=== PATIENT | male | born 1940 | race Caucasian/White ===

== ENCOUNTER 2016-07-27 01:16 | Inpatient (IN) | payer MEDICARE, MEDICAID ==
[~2016-07-27] VITALS: Ht 147.3 cm; Wt 36.7 kg
--- NOTE | ~2016-07-27 | CON ---
PATIENT'S NAME: EMMA MACIAS [facility] AGE: 75 Y [address] ROOM: [address] [address] LOCATION: [facility] ADMIT DATE: 07/27/2016 Consultation DISCHARGE DATE: 07/27/2016 FAMILY PHYSICIAN: Catalino Gamble ATTENDING PHYSICIAN: Carlos Cervantes V DATE OF CONSULTATION: 07/27/2016 LOCATION: [place] [address]. This is a palliative care referral for goals of care in patient and family support. HISTORY OF PRESENT ILLNESS: This 75-year-old male was admitted on 07/27/2016 with pneumoperitoneum. He was recently admitted in [place] for a gastrostomy tube placement by Interventional Radiology on 07/16/2016. He was in the hospital until the and was sent back to [facility] in [place], [place]. He had a pneumothorax after the gastrostomy tube was placed and had been receiving tube feedings. The patient started to have distended abdomen and was transferred to the hospital in [place]. He has a known history of cerebral spinal meningitis, PKU, seizures, spastic quadriplegia, severe mental retardation, chronic constipation, chronic UTIs, and severe malnutrition with weight loss. He has lived at the [facility] since he was age of [address] scan was performed and revealed that the gastrostomy tube was too extraluminal with a very thickened bowel cornejo, dilated loops of bowel, and was found gastrostomy tube outside of stomach and multiple bowel obtstructions. Patient is unresponsive and respirations are labored. No grimacing or moaning noted. PAST MEDICAL HISTORY: Mental retardation, cerebral spinal meningitis, phenylketonuria or PKU, seizure disorder, spastic quadriplegic, and micro encephalopathy. SOCIAL HISTORY: Patient has lived at the [facility] since he was the age of 8. He has 1 sister and 2 brothers. Brothers are not involved. Sister and her are the medical power of research attorney. He is wheelchair bound and nonverbal. FAMILY HISTORY: Non-obtainable. MEDICATIONS: See MAR. REVIEW OF SYSTEMS: A review of systems was done and chart was reviewed. The patient is PATIENT'S NAME: RMSEATTLE [facility] AGE: 75 Y [address] ROOM: [facility] [place], [place] [address] LOCATION: [facility] ADMIT DATE: 07/27/2016 Consultation DISCHARGE DATE: 07/27/2016 FAMILY PHYSICIAN: Catalino Gamble ATTENDING PHYSICIAN: Carlos Cervantes V unresponsive, unable to do due to condition. PHYSICAL EXAMINATION: VITAL SIGNS: Temp 96.8 axillary, heart rate 107, respirations 52, blood pressure 90/69, and O2 sat is 91%. He weighs 81 pounds. GENERAL: Unresponsive, labored respirations. SKIN: Warm and dry. Color pale, diaphoretic. Feet are cool, some cyanosis. HEENT: Head: Normocephalic and atraumatic. Sclerae are nonicteric. Conjunctivae are pale and pink. Mouth is pink and dry. LYMPHATICS: No cervical adenopathy or thyromegaly. RESPIRATORY: Clear to auscultation. Breath sounds, tachypnea and labored in the 50s. CARDIAC: S1, S2 without murmurs or bruits. No lower extremity edema. ABDOMEN: Soft, nondistended. Positive hypo bowel tones. NEUROLOGIC: Unresponsive. MUSCULOSKELETAL: Contracted in upper and lower extremities. He has been wheelchair-bound. EXTREMITIES: Cyanosis in lower extremities and in hands. IMPRESSION: Dyspnea. PLAN: I talked with sister Charisma Cheney who is the medical power of research attorney and patient's sister. Discussed her knowledge of condition and talking with Dr. Hughes and hospitalists. She has a good understanding of the patient's condition and does not want to have surgery. Discussed comfort cares and keeping the patient comfortable. She is in agreement to doing comfort cares and just keep the patient comfortable. She is unable to come and see patient due to just being within the past couple of days in [place] and she lives in [place]. Discussed options of having [employer] caregivers come and be with the patient and volunteers from [employer] program. Sister is in favor of doing both. Spiritual needs, is okay to contact Civil Engineering Draftsperson from [employer] to come up and see patient. Did contact registrar college or university. He is on his way. CODE STATUS AND ADVANCE DIRECTIVE: A copy of advance directive is on the chart. The patient is a do not resuscitate/do not intubate. FEARS AND CONCERNS: Discussed with sister her concerns and worries; does not want her brother to suffer; wants to keep him comfortable and not be alone if possible. RECOMMENDATIONS: Comfort care order set was initiated after talking with the hospitalist. PATIENT'S NAME: EMMA MACIAS [facility] AGE: 75 Y [address] ROOM: [address] [address] LOCATION: [facility] ADMIT DATE: 07/27/2016 Consultation DISCHARGE DATE: 07/27/2016 FAMILY PHYSICIAN: Catalino Gamble ATTENDING PHYSICIAN: Carlos Cervantes V home is [facility]. Total time was 60 minutes with 50 minutes for counseling and coordination of care. Thank you for allowing me to assist this patient and family. BERNIE SCHWARZ NP FOR MD QIAN LIMA/[place] /[id number] d: 07/28/16 1657 t: 08/06/16 0844, CONSULTATION REPORT
--- NOTE | ~2016-07-27 | DS ---
PATIENT'S NAME: EMMA MACIAS [facility] AGE: 75 Y [address] ROOM: [address] [place], [place] [address] LOCATION: [facility] ADMIT DATE: 07/27/2016 Discharge Summary DISCHARGE DATE: 07/27/2016 FAMILY PHYSICIAN: Catalino Gamble ATTENDING PHYSICIAN: Carlos Cervantes V SUMMARY The patient on July 27, 2016, around 9:45 a.m. CAUSE OF : Sepsis secondary to pneumoperitoneum following gastrostomy tube placement. OTHER DIAGNOSES: 1. Mental retardation. 2. Cerebrospinal meningitis. 3. Phenylketonuria. 4. Seizure disorder. 5. Spastic quadriplegia. 6. Micro-encephalopathy. SUMMARY: Emma Macias is a 75-year-old male, who resides at [facility], who underwent a gastrostomy tube placement in [place] by Interventional Radiology around July 16. The patient was hospitalized until July 23 due to a small pneumothorax following the gastrostomy tube placement. On July 27, the patient was noted to have increasing abdominal distention and was taken to [facility], where he was found to have pneumoperitoneum. He was subsequently transferred to [facility] for further evaluation. He was noted to be tachycardic, but remained normotensive. CT scan revealed that his gastrostomy tube was extraluminal with very thickened bowel wall, dilated loops of bowel, did not appear to have complex fluid collections. The patient was evaluated by Dr. Hughes in the emergency room. He noted that the abdomen was distended and tympanic with tenderness throughout. The patient was very thin with severe wasting, severe cachexia. Dr. Hughes contacted the patient's sister, who was power of sports attorney. Discussion in regard to exploratory laparotomy versus conservative treatment with antibiotics. Sister ultimately decided for conservative treatment with palliative care consult. The patient was admitted under the care of the hospitalist, where Zosyn 3.375 g IV q.6 hours was initiated. He was made DNR/DNI. Morphine was ordered for pain, Ativan for agitation. He was kept n.p.o. Focused attention on the patient's comfort was ordered. Again, palliative care did evaluate the patient. The patient subsequently at 9:45 a.m. For specifics on the care, please refer to the hospital chart. PATIENT'S NAME: EMMA MACIAS [facility] AGE: 75 Y [address] ROOM: [place] [address] LOCATION: [facility] ADMIT DATE: 07/27/2016 Discharge Summary DISCHARGE DATE: 07/27/2016 FAMILY PHYSICIAN: Catalino Gamble ATTENDING PHYSICIAN: Carlos Cervantes V ZEYAD GRANT PA-C FOR MD ARSEN RAMOS/olafl /[id number] d: 08/04/16 0446 t: 08/05/16 0941, DISCHARGE SUMMARY
--- NOTE | ~2016-07-27 | ER ---
PATIENT'S NAME: RMIONE [facility] AGE: 75 Y [address] ROOM: [address] [place], [place] [address] LOCATION: [facility] ADMIT DATE: 07/27/2016 ER/Outpatient Report DISCHARGE DATE: FAMILY PHYSICIAN: Catalino Gamble ATTENDING PHYSICIAN: DOMINIQUE TURNER V Time of Arrival: 0116 hours. Time Seen: 0116 hours. IDENTIFICATION: A 75-year-old male. CHIEF COMPLAINT: Abdominal pain. HISTORY OF PRESENT ILLNESS: The patient is a 75-year-old male transferred from [facility] per Dr. Hughes. The patient is a resident at [facility], who has a history of profound intellectual disabilities, history of cerebrospinal meningitis, PKU, seizures, microcephaly, and he recently had a PEG tube placed by Interventional Radiology at [place] in [place] on July 16. This was complicated by left pneumothorax and he was dismissed on July 23. Tonight, he began having increased respiratory rate, heart rate, hypoxia, and diaphoretic. Free air was noted on abdominal x-ray. His white blood cell count was elevated to 14,400, CRP was 42.6, and his procalcitonin was 1.9. He was pale, diaphoretic, ill, with coarse lungs. Abdomen was distended, firm, and nontender, so he was transferred here per Dr. Hughes for pneumoperitoneum, tachycardia, and tachypnea. On arrival, the patient is nonverbal, he is moaning and crying out in pain. PAST MEDICAL HISTORY: ALLERGIES: NO KNOWN DRUG ALLERGIES BUT NO ASPARTAME OR NUTRASWEET PRODUCTS DUE TO PKU. CURRENT MEDICATIONS: 1. Tylenol liquid. 2. Bisacodyl suppository p.r.n. 3. Ondansetron 4 mg q.6 hours p.r.n. 4. Guaifenesin DM 10 mL q.4 hours p.r.n. 5. Hydrocortisone cream 2.5% topically. 6. Triple antibiotic p.r.n. 7. Nitrofurantoin 100 mg daily. 8. Phenytoin 100 mg 2 caps at h.s. 9. Debrox p.r.n. PATIENT'S NAME: [facility] AGE: 75 Y [address] ROOM: [address] [place], [place] [address] LOCATION: [facility] ADMIT DATE: 07/27/2016 ER/Outpatient Report DISCHARGE DATE: FAMILY PHYSICIAN: Catalino Gamble ATTENDING PHYSICIAN: DOMINIQUE TURNER V 10. Erythromycin 0.5 inch ribbon to upper and lower right eyelid at h.s. 11. Tobrex, dexamethasone 1 drop to right eye at bedtime. 12. Dilantin 100 mg at h.s. 13. Amiodarone 200 mg daily. 14. Apixaban 5 mg b.i.d. 15. Activia yogurt one container once daily. 16. Multivitamin daily. 17. Vitamin D 50,000 units every other week on Tuesday. 18. Beano one tablet daily. 19. Amitiza 24 mcg twice daily. 20. Docusate 100 mg twice daily. 21. Milk of magnesia p.r.n. 22. MiraLAX 17 g twice daily. 23. - one scoop in 7 ounces of juice twice daily. 24. Meloxicam 7.5 mg twice daily. 25. Magic cup 3 times daily. 26. [place] Instant Breakfast 3 times daily. 27. Metoclopramide 10 mg 4 times daily before meals and at h.s. MEDICAL PROBLEMS: Profound intellectual disabilities, spastic quadriplegia, cerebral meningitis, PKU, major motor seizures, microcephaly, chronic UTI, osteoporosis, vitamin D deficiency, SOCIAL HISTORY: The patient lives in a detention at [facility]. Tobacco use, denies. Alcohol use, denies. REVIEW OF SYSTEMS: Unable to obtain from the patient. FAMILY HISTORY: Unable to obtain from the patient. PHYSICAL EXAMINATION: VITAL SIGNS: Weight 56.7 kilograms, blood pressure 124/51, pulse 114, respirations 36, temp 97.3, sats 92% on room air. GENERAL: A 75-year-old male in obvious distress. HEENT: Head, microcephalic. Eyes; right eye enucleation with prosthesis. Nose, mucosa pink. No lesions. Mouth, no lesions. Pharynx, benign. NECK: Supple. No lymphadenopathy. LUNGS: Clear to auscultation. Coarse breath sounds and tachypneic. HEART: Sinus tachycardia. ABDOMEN: Distended, firm. No bowel sounds. Tympanitic and diffusely tender to palpation. Unable to determine if he has rebound or guarding. PATIENT'S NAME: EMMA MACIAS [facility] AGE: 75 Y [address] ROOM: [address] [place], [place] [address] LOCATION: [facility] ADMIT DATE: 07/27/2016 ER/Outpatient Report DISCHARGE DATE: FAMILY PHYSICIAN: Catalino Gamble ATTENDING PHYSICIAN: DOMINIQUE TURNER V SKIN: Pale, warm, and dry. NEURO: The patient has severe intellectual disabilities. He has spasticity more pronounced in the lower extremities. LABORATORY DATA AND X-RAYS: Records were reviewed from [place] and [facility]. UA done in [place]; specific gravity 1.020, trace of blood, 6 to 10 red cells, 3 to 5 white cells, 1+ bacteria. Sodium 141, potassium 5.3, chloride 107, CO2 of 19, BUN 34, creatinine 1.17, blood sugar 157. Liver enzymes normal. Amylase elevated at 163, lipase 821. CRP 42.6. Procalcitonin 1.93. Hemoglobin 13.5, hematocrit 44.1, platelets 422, white count 14.4. Abdominal series, x-ray done in [place]; marked bowel distention particularly involving the colon measuring up to 15 cm, pneumoperitoneum is present. EMERGENCY DEPARTMENT COURSE: On arrival here to the emergency room, Dr. Hughes had ordered a CT abdomen and pelvis with IV contrast. His IV was not functioning, so a second IV was initiated and CT scan of his abdomen and pelvis with IV contrast was completed. Dr. Hughes was notified of the patient's arrival. The patient received Zosyn 3.375 g at 0000 hours and normal saline at 100 mL/h. CT scan with IV contrast of the abdomen and pelvis here reveals a large amount of pneumoperitoneum with prominent complex fluid in the abdomen. Gastrostomy tube is outside the lumen of the stomach. Multiple dilated thick walled loops of bowel obstruction and ischemia are possibilities. Splenic and renal hypodensities could represent infarcts. IMPRESSION: 1. Large amount of pneumoperitoneum with dislodgement of gastrostomy tube. 2. Splenic and renal hypodensities could represent infarct. 3. Profound intellectual disabilities. 4. Probable sepsis with elevated procalcitonin, white count. The patient had received Zosyn prior to arrival in [place]. 5. Severe malnutrition. PLAN: Dr. Hughes evaluated the patient, contacted Emma's sister, power of certification and selection specialist. After a long discussion with her, they agreed upon admission with IV antibiotics and palliative care consult. Dr. Turner, hospitalist, will admit the patient and also evaluated the patient in the emergency room. LAKHWINDER BOLAND MD PATIENT'S NAME: EMMA MACIAS [facility] AGE: 75 Y [address] ROOM: [address] [address] LOCATION: [facility] ADMIT DATE: 07/27/2016 ER/Outpatient Report DISCHARGE DATE: FAMILY PHYSICIAN: Catalino Gamble ATTENDING PHYSICIAN: DOMINIQUE TURNER/[place] /[id number] d: 07/27/16 0639 t: 07/28/16 0044, OUTPATIENT REPORT
--- NOTE | ~2016-07-27 | CON ---
PATIENT'S NAME: EMMA MACIAS [facility] AGE: 75 Y [address] ROOM: [place] [address] LOCATION: [facility] ADMIT DATE: 07/27/2016 Consultation DISCHARGE DATE: FAMILY PHYSICIAN: Catalino Gamble ATTENDING PHYSICIAN: DOMINIQUE TURNER V DATE OF CONSULTATION: 07/27/2016 REASON FOR THE ADMISSION: Pneumoperitoneum. HISTORY OF PRESENT ILLNESS: The patient is a 75-year-old male with extensive past medical history further detailed below, most significant was severe mental retardation who resides at the [facility]. The patient recently had placement of a gastric feeding tube. Today, he was brought to the hospital in [place] due to complaints of nausea, vomiting, and abdominal pain. A CAT scan there demonstrated a pneumoperitoneum with marked bowel distention and prominent complex fluid in the abdomen. A gastrostomy tube outside of the lumen of the stomach and multiple dilated thick walled loops of bowel obstruction, ischemia as possibilities. The patient was sent to [facility] ER. Here, he was evaluated by Dr. Hughes of General Surgery. He discussed surgical options with the patient's POA, as the patient is severely mentally retarded. Per my discussion with Dr. Hughes, the POA did not want any aggressive measures such as surgery and a Palliative Care consult was requested. At this point, all the history is obtained from accompanying records. PAST MEDICAL HISTORY: Extracted from the accompanying information is significant for mental retardation, cerebrospinal meningitis, acute , seizure disorder, spastic quadriplegia, microcephaly, corneal scarring, right eye enucleation, chronic constipation, syndrome, tardive dyskinesia, osteoporosis, and degenerative joint disease. SOCIAL HISTORY: The patient resides in a jail. FAMILY HISTORY: Reviewed and noncontributory due to known underlying etiology for the patient's presentation. CURRENT MEDICATIONS: Extensive and include: 1. Lactulose. PATIENT'S NAME: EMMA MACIAS [facility] AGE: 75 Y [address] ROOM: [place] [address] LOCATION: [facility] ADMIT DATE: 07/27/2016 Consultation DISCHARGE DATE: FAMILY PHYSICIAN: Catalino Gamble ATTENDING PHYSICIAN: DOMINIQUE TURNER V 2. Mobic. 3. Colace. 4. Vitamin D. 5. Multivitamin. 6. Robafen. 7. Zofran. 8. Hydrocortisone topical. 9. Dulcolax. 10. Erythromycin. 11. Metoclopramide. 12. TobraDex. 13. Dilantin. 14. Macrobid. 15. Amitiza. 16. Milk of magnesia. 17. MiraLAX. PHYSICAL EXAMINATION: VITAL SIGNS: Blood pressure 113/55, heart rate is 114, saturating over 90% on room air. He is afebrile. GENERAL: Appears an emaciated elderly male, in [id number] distress due to his abdominal discomfort with multiple contractures. NEUROLOGICAL: Cannot be performed. EYES: Reveals right eye enucleation. ENT: Reveals severe wasting of the patient's muscles. LYMPHATICS: Shows no cervical lymphadenopathy. ENDOCRINE: Shows no thyromegaly. LUNGS: Grossly clear to auscultation. ABDOMEN: Tense and tender throughout with rebound and diminished bowel sounds. There is a gastric tube protruded in the left upper quadrant. MUSCULOSKELETAL: Shows severe muscle wasting. SKIN: Very dry. PSYCHIATRIC: Cannot be conducted. REVIEW OF STUDIES: From the outside facility revealed potassium of 5.3, BUN of 29, albumin of 2.6. Amylase 163, lipase of 821. White count is 14.4, hemoglobin is 13.5. ASSESSMENT AND PLAN: This is a 75-year-old, male, with a pneumoperitoneum and likely perforation with possible ischemia of his bowel. Per discussion with the General Surgery Service, the family has opted for a nonoperative course. I believe that this is appropriate given this gentleman's current state of health and prognosis. A Palliative Care consult has already been requested by Dr. Hughes, but I feel that we should start the patient on comfort measures at this point, as he PATIENT'S NAME: EMMA MACIAS [facility] AGE: 75 Y [address] ROOM: [address] [address] LOCATION: [facility] ADMIT DATE: 07/27/2016 Consultation DISCHARGE DATE: FAMILY PHYSICIAN: Catalino Gamble ATTENDING PHYSICIAN: DOMINIQUE TURNER V appears to be in profound discomfort. We will start him on morphine and Ativan as needed. We will continue with antibiotics as ordered by General Surgery. We will request for daily vitals only. I doubt the patient would benefit from routine blood draws or imaging. We will allow Palliative Care to engage the family regarding following steps, but at this point, I am tempted to be compassionate and keep this gentleman out of pain. Time dedicated to this patient's encounter is 35 minutes. MD REBECCA GARCIA/[place] /[id number] d: 07/27/16 0642 t: 08/09/16 2355, CONSULTATION REPORT
--- NOTE | ~2016-07-27 | HP ---
PATIENT'S NAME: EMMA MACIAS [facility] AGE: 75 Y [address] ROOM: [place] [address] LOCATION: [facility] ADMIT DATE: 07/27/2016 History & Physical DISCHARGE DATE: FAMILY PHYSICIAN: Physician, Unknown ATTENDING PHYSICIAN: Yaneth Zuleta DATE OF SERVICE: CHIEF COMPLAINT: Pneumoperitoneum. HISTORY OF PRESENT ILLNESS: The patient is a 75-year-old male who had a gastrostomy tube placed in [place] by Interventional Radiology, I believe on 07/16. He was in the hospital until 07/23. He had a small pneumothorax after gastrostomy tube placement. He had been receiving tube feeds prior too. Today it is unclear when the tube was dislodged and as to the timing of his last tube feedings. He lives at [facility]. He has a history of cerebral spinal meningitis, PKU, seizures, spastic quadriplegia, and severe mental retardation. He has chronic constipation, chronic urinary tract infections. He has severe malnutrition with weight loss. He was noted at [facility] to have increasing abdominal distention. He was taken to [place] where he was found to have pneumoperitoneum. He was subsequently transferred here for evaluation. He is tachycardic. He remains normotensive. A CT scan was performed that revealed his gastrostomy tube to be extraluminal with very thickened bowel cornejo, dilated loops of bowel, did not appear to be complex fluid collections. CURRENT ILLNESSES: Mental retardation, cerebrospinal meningitis, phenylketone urea, seizure disorder, spastic quadriplegia, and microencephalopathy. REVIEW OF SYSTEMS: Unobtainable. SOCIAL HISTORY: He resides in [facility]. His sister and [id number] are power of operator/assistant foreman. He is wheelchair-bound, nonverbal. FAMILY HISTORY: Unobtainable. CURRENT MEDICATIONS: Please see [facility]. PHYSICAL EXAMINATION: PATIENT'S NAME: EMMA MACIAS [facility] AGE: 75 Y [address] ROOM: [place] [address] LOCATION: [facility] ADMIT DATE: 07/27/2016 History & Physical DISCHARGE DATE: FAMILY PHYSICIAN: Physician, Unknown ATTENDING PHYSICIAN: Yaneth Zuleta GENERAL: He is nonverbal 75-year-old male who appears to be severely wasting. Severe cachexia. Sinus tach. Blood pressure is 113/57. HEENT: Eyes are anicteric. NECK: Without lymphadenopathy. LUNGS: Clear. Slightly tachypneic. HEART: Regular. No murmurs. ABDOMEN: Distended and tympanic with tenderness throughout. EXTREMITIES: Very thin. No significant edema. NEUROLOGICAL: He opens eyes and appears somewhat agitated. LABORATORY DATA: White blood cell count 14.4, the rest of his labs were reviewed. ASSESSMENT: 1. Status post gastrostomy tube placement with dislodgement and pneumoperitoneum. 2. Severe malnutrition. PLAN: At this point in time, I discussed the findings with Emma's sister. I discussed surgical exploration versus observation and antibiotics. I discussed with her the severity of the imaging and my concerns with this development of sepsis, but also discussed the increased risks of surgery. We discussed possible outcomes, quality of life. After a long discussion regarding each of these issues, they do not wish for him to undergo another surgery. We will plan on placing him on IV antibiotics and observe him. We will get a Palliative Care consult and potentially discuss hospice. More than an hour spent in reviewing records, images, CT and labs, as well as bedside patient care. MD KATHERINE RAMOS/[place] /[id number] D: [id number] T: [id number] HISTORY & PHYSICAL
[2016-07-27] MEDS ORDERED: BISAC-EVAC10 MG R (07:07)
[2016-07-27] MEDS ORDERED: ZOFRAN4 MG PO (07:10)
[2016-07-27] MEDS ORDERED: TYLENOL LI160 MG/5 M PO (07:10)
[2016-07-27] MEDS ORDERED: ROBITUSSIN DM120 ML PO (07:12)
[2016-07-27] MEDS ORDERED: HYDROCORTISONE20 GM TOP (07:14)
[2016-07-27] MEDS ORDERED: TRIPLE ANTIBIO1 EACH TOP (07:15)
[2016-07-27] MEDS ORDERED: IODINE30 ML TOP (07:16)
[2016-07-27] MEDS ORDERED: DILANTIN100 MG PO (07:18)
[2016-07-27] MEDS ORDERED: MACROBID100 MG PO (07:18)
--- NOTE | 2016-07-27 07:20 | NUR ---
Pt to ER at approx 2355. Resides at [facility] - developmentally delayed. DC'd from [facility] 3 days ago after peg tube placement surgery on July 16, 2016. Admitted to [facility] for Pneumo-peritoneum. Sister is POA. Is WC bound - bilateral contractures to upper and lower limbs and poor muscle tone. Skin is cool to touch. DNR status as of this ER visit, order written by . Nonverbal but moans - hits self with R) hand - this is pt's baseline behaviors. Very diaphoretic. Lipase 821, Procal 1.93, WBC's 15. Allergic to Aspartame - bracelet on. Bed alarms on. PIV to L) hand is SL.
[2016-07-27] MEDS ORDERED: DEBROX,CARBAMID15 ML OTIC (07:21)
[2016-07-27] MEDS ORDERED: CORDARONE,PACE200 MG PO (07:23)
[2016-07-27] MEDS ORDERED: TOBRADEX5 ML OPHTH (07:23)
[2016-07-27] MEDS ORDERED: ELIQUIS5 MG PO (07:24)
[2016-07-27] MEDS ORDERED: DILANTIN30 MG PO (07:26)
--- NOTE | 2016-07-27 12:41 | NUR ---
Patient at 0945. Family manager qa at bedside. He notified family from his personal phone at the bedside. Patient was cleaned up, all catheters pulled. Bedding changed to clean. Transport order placed for transport to [facility]. home notified.
== END 2016-07-27 09:45 | disposition expired | DRG 393 ==
LOC: GMED 01:16 → GMSU 04:51
PROVIDERS: ADMIT Internal Medicine
DX: K94.29 Other complications of gastrostomy (principal); E43 Unspecified severe protein-calorie malnutrition; A39.0 Meningococcal meningitis; K63.1 Perforation of intestine (nontraumatic); G82.50 Quadriplegia, unspecified; G93.49 Other encephalopathy; A41.9 Sepsis, unspecified organism; E70.1 Other hyperphenylalaninemias; K55.9 Vascular disorder of intestine, unspecified; Z51.5 Encounter for palliative care; Z66 Do not resuscitate; Y84.8 Other medical procedures as the cause of abnormal reaction of the patient, or of later complication, without mention of misadventure at the time of the procedure; F79 Unspecified intellectual disabilities; K66.8 Other specified disorders of peritoneum; K59.09 Other constipation; Z87.440 Personal history of urinary (tract) infections; Z99.3 Dependence on wheelchair
CPT/HCPCS: J2060; J2270; J2543; J7050; Q9967